=== PATIENT | female | born 1955 | race Caucasian/White ===

== ENCOUNTER 2023-12-10 09:05 | Day surgery (SDC) | payer MEDICARE, MEDICAID ==
[2023-12-10] VITALS (7 sets, daily range): BP systolic 127–151; BP diastolic 55–81; PULSE 80–95; RESP 12–21; TEMP 98.8; O2SAT 96–98
[~2023-12-10] VITALS: Ht 157.5 cm; Wt 77.9 kg
[2023-12-10] MEDS: DOCUMENT DATE & TIME OF BETA-BLOCKER PO ONE (05:30)
[2023-12-10] MEDS: cefazolin 2gm/D5W 100mL 100 ML IV ONE (05:30)
[~2023-12-10 09:05] MED LIST: APIX5TAB3 PO; ASPI-1265 PO; ATOR40TA72 PO; DULO60CA65 PO; EMPA25TA PO; HYDR-3972 PO; LANTUS SQ; LISI30TA4 PO; METO25TA6 PO; NOVLG SQ
[2023-12-10] MEDS: ringers solution, lacted 1,000 ML IV SCH (10:23)
[2023-12-10] MEDS: famotidine 20mg tablet PO ONE (10:23)
[2023-12-10 11:11] LABS: BASOPHILS # (AUTO) 0.1 X10'3 (0-0.2); BASOPHILS % (AUTO) 0.7 % (0-1); EOSINOPHILS # (AUTO) 0.1 X10'3 (0-0.9); EOSINOPHILS % (AUTO) 0.5 % (0-6); LYMPHOCYTES # (AUTO) 2.4 X10'3 (1.1-4.8); LYMPHOCYTES % (AUTO) 19.2 % (21-51); MEAN CORPUSCULAR HEMOGLOBIN 27.3 PG (27.0-31.0); MEAN CORPUSCULAR HGB CONC 32.5 g/dL (33.0-36.5); MEAN PLATELET VOLUME 10.2 FL (7.4-10.4); MONOCYTES % (AUTO) 7.5 % (2-12); NEUTROPHILS # (AUTO) 9.2 X10'3 (1.8-7.7); NEUTROPHILS % (AUTO) 72.1 % (42-75); PRE OP HEMATOCRIT 38.3 % (35.0-45.0); PRE OP HEMOGLOBIN 12.4 g/dL (12.0-16.0); PRE OP PLATELET COUNT 382 X10'3 (140-440); PRE OP WHITE BLOOD COUNT 12.8 10'3 (4.8-10.8); RED BLOOD COUNT 4.56 X10'6 (4.20-5.60); RED CELL DISTRIBUTION WIDTH 14.3 % (11.5-14.5)
[2023-12-10 11:24] LABS: ALBUMIN 3.9 G/DL (3.4-5.0); ALBUMIN/GLOBULIN RATIO 1.2 (1.1-1.5); ALKALINE PHOSPHATASE 59 IU/L (46-116); BLOOD UREA NITROGEN 22 MG/DL (7-18); BUN/CREATININE RATIO 23.9 (10.0-20.0); CALCIUM 8.9 MG/DL (8.5-10.1); CHLORIDE 103 MMOL/L (99-107); CREATININE 0.92 MG/DL (0.40-0.90); PRE OP ALT 24 U/L (30-65); PRE OP ANION GAP 13 (8-16); PRE OP AST 23 U/L (10-37); PRE OP BILIRUB, TOTAL 0.8 MG/DL (0.0-1.0); PRE OP GLUCOSE 111 MG/DL (70-104); PRE OP SODIUM 139 MMOL/L (135-145); TOTAL CARBON DIOXIDE 23.2 MMOL/L (24-32); TOTAL PROTEIN 7.1 G/DL (6.4-8.2); eCRCL 45 ML/MIN; eGFR 60 ML/MIN
[2023-12-10 11:30] LABS: PRE OP POTASSIUM 3.1 MMOL/L (3.4-5.1)
[2023-12-10] MEDS ORDERED: sevoflurane 250ml liquid IH ONE (12:40)
[2023-12-10] MEDS: LIDOcaine 1% 30ml preserv. free vial ONE (13:05)
[2023-12-10] MEDS: BUPIVAcaine 2.5mg/ml inj 50ml vial (contains preservative) ONE (13:05)
[2023-12-10] MEDS ORDERED: HYDROcodone/acetaminophen 10/325mg tab PO PRN (13:55)
== END 2023-12-10 15:16 | disposition home or self-care (01) ==
LOC: PAS 09:05
PROVIDERS: ATTEND Surgery
DX: R22.1 Localized swelling, mass and lump, neck (principal); M79.89 Other specified soft tissue disorders; I10 Essential (primary) hypertension; E11.9 Type 2 diabetes mellitus without complications; E78.5 Hyperlipidemia, unspecified; M19.90 Unspecified osteoarthritis, unspecified site; Z86.73 Personal history of transient ischemic attack (TIA), and cerebral infarction without residual deficits; Z79.01 Long term (current) use of anticoagulants; Z79.82 Long term (current) use of aspirin; Z79.899 Other long term (current) drug therapy; Z90.710 Acquired absence of both cervix and uterus; Z98.890 Other specified postprocedural states; Z82.49 Family history of ischemic heart disease and other diseases of the circulatory system; Z82.3 Family history of stroke; Z82.61 Family history of arthritis; Z83.3 Family history of diabetes mellitus
CPT/HCPCS: 21556; 36415; 80053; 82948; 85025; A4215; A4618; A7000; J0690; J1100; J2001; J2405; J2704; J2765; J3490; J7030; J7120; Z7506; Z7512; Z7610; 88304